=== PATIENT | male | born 1940 | race Caucasian/White ===

== ENCOUNTER 2025-08-11 11:41 | Emergency (ER) | payer MEDICARE, OTHER, SELFPAY ==
[2025-08-11] VITALS (8 sets, daily range): BP systolic 102–183; BP diastolic 64–131; BMI 28.1
[2025-08-11 12:37] LABS: Hematocrit 44.0 % (39.0-52.0); Hemoglobin 15.1 g/dL (13.0-18.0); Mean Corp Hgb Conc. 34.3 g/dL (33.0-37.0); Mean Corpuscular Volume 88.7 fL (80.0-94.0); Nucleated Red Blood Cells % 0 % (-); Platelet Count 154 10^3/uL (130-400); Red Cell Dist. Width 14.0 % (11.5-14.5)
[2025-08-11 12:45] LABS: INR 0.95; PT 13.2 Sec (11.4-14.6)
[2025-08-11 12:46] LABS: APTT 33.2 Sec (23.4-35.0)
--- NOTE | 2025-08-11 12:48 | ED.GENMED ---
History of Present Illness
General
Chief Complaint: Heart Rate Problem
Source: patient and spouse
Exam Limitations: none
Time Seen by Provider: 08/11/25 12:37
Nursing documentation reviewed up to this point in time: agreed with
History of Present Illness
History of Present Illness:
85 male sent over from surgery center he was to get cataract surgery found to be in rapid A-fib unaware that he was in A-fib, as a new issue for him he has hypertension on lisinopril essential tremor on propranolol hypercholesterolemia also
chronically on Mobic no fevers no chest pains
Past History
Past History
ED Past Medical History: HTN; Negative Arrthythmia, IDDM or NIDDM
ED Past Surgical History: Negative Cardiac
Social History
Tobacco: Non-smoker
Alcohol: Occasional
Drug: None
Personal:
Living: with family
Employment: Retired
Family History
Family History: Other (Noncontributory)
Review of Systems
Review of Systems
All Other Systems: Not applicable
Constitutional: Denies fever or fatigue
EENT: Reports no symptoms
Respiratory: Reports no symptoms
Cardiac: Reports no symptoms
ABD/GI: Reports no symptoms
Phy Exam
Physical Exam
Physical Exam:
Physical Exam
General: no apparent distress, not acutely ill
Neck: No jaundice
Heart: Tachycardic
Lungs: no acute respiratory distress. clear bilaterally
Abdomen: Nontender
Neuro: alert and oriented. no focal neurological deficits
Skin: no rash
Psychiatric: well kept. interactive and cooperative
Extremities: no edema. no calf tenderness.
Scores
[id number] Score for Afib Stroke Risk
Age in Years (65=0, 65-74=1, >/=75=2): > or = 75
Sex (Female=+1): Male
Congestive Heart Failure History (Yes=+1): No
Hypertension History (Yes=+1): Yes
Stroke/TIA/Thromboembolism History (Yes=+2): No
Vascular Disease History (Yes=+1): No
Diabetes Mellitus (Yes=+1): No
Score: 3
Anticoagulation Recommendations: Recommend anticoagulation (as validated in nonvalvular fib)
Course
Orders/Labs/Results
Orders:
Orders
08/11/25 11:42
Electrocardiogram (*1) Urgent
Reason for Study: Atrial Fibrillation
EKG- Treatment ONCE
08/11/25 12:28
Complete Blood Count/With Diff Urgent
Comprehensive Metabolic Panel Urgent
PTT Urgent
Prothrombin Time Urgent
Troponin I Urgent
08/11/25 12:46
Diltiazem HCl [Cardizem] 10 mg IV NOW STA
08/11/25 13:00
Diltiazem 125 mg/125 ml Nss [Cardizem] 125 mg in 125 ml IV PER PROTOCOL
Initial dose in mg/hr, then titrate:: 5
Titrate to keep:: Heart rate 80-100 bpm
Titrate by mg/hr:: 5 mg/hr
Frequency of titrations (minutes):: 15
Maximum dose in mg/hr:: 15
08/11/25 13:55
CARDIOLOGY CONSULT Urgent
Consulting Provider: Israel Smith
Was physician already notified: Yes
08/11/25 14:13
0.9% Sodium Chloride 1000 ml [Nss] 1,000 ml IV BOLUS
Abnormal Lab Results
08/11/25
12:28
Absolute Neuts (auto) 7.9 H 10^3/uL
(1.4-6.5)
Absolute Lymphs (auto) 0.8 L 10^3/uL
(1.2-3.4)
Neutrophils % 84.3 H %
(42.2-75.2)
Lymphocytes % 8.8 L %
(20.5-51.1)
BUN 21 H mg/dl
(9-20)
Glucose 199 H mg/dl
(70-99)
Total Bilirubin 1.9 H mg/dl
(0.2-1.3)
08/11/25 12:28
08/11/25 12:28
Vital Signs
Initial and Last Documented VS:
Initial Vital Signs
Temp Pulse Resp BP Pulse Ox
97.8 F 131 22 183/131 98
08/11/25 11:48 08/11/25 11:48 08/11/25 11:48 08/11/25 11:48 08/11/25 11:48
Last Documented Vital Signs
Temp Pulse Resp BP Pulse Ox
97.8 F 67 10 102/75 96
08/11/25 11:48 08/11/25 14:00 08/11/25 14:00 08/11/25 14:00 08/11/25 14:00
MDM/Problems Addressed
Differential Diagnosis Includes:
Atrial fibs A. tach electrolyte abnormality thyroid
MDM/Problems Addressed:
Tach
Chronic conditions affecting care: HTN
Acute Exacerbation and/or Progression of Chronic Illness: HTN
*Pulse Oximetry
SaO2: 98
Oxygen Mode of Delivery: Room air
Patient hypoxic: no
*EKG
Interpreted by ED Provider?: Yes
Interpretation: abnormal
Comparison EKG: no comparison EKG present
Heart Rate: 118
Rate: tachycardiac
Rhythm: a-fib
Ischemia: non-specific ST changes
*Snag Grinder Interpretation
Rate: tachycardiac
Interpretation: abnormal
Heart Rate: 118
Rhythm: a-fib
*Critical Care Note
Total Time (30-74mins, 75-104mins- exclusive of procedures): 32
Update Note
Update Note:
2 PM update labs noted still in A-fib controlled rate consult placed to cardiology spouse has seen Cooper Morgan previously
2:40 PM update patient looks well rate controlled AF blood pressure improved patient family updated
ED Attending Note
-
Portions of this chart may have been created with voice recognition software.� Occasional wrong word or��sound alike� substitutions may have occurred due to the inherent limitations of voice recognition software.
Discharge Plan
Departure
Prescriptions:
No Action
propranolol 60 MG capsule,extended release 24 hr
60 mg PO DAILY
aspirin 81 MG tablet,delayed release (DR/EC)
81 mg PO QPM
simvastatin 20 MG tablet
20 mg PO QPM
lisinopril 10 MG tablet
10 mg PO QPM
cephalexin 500 mg capsule
500 mg PO Q8H 3 Days Qty: 9 0RF
Referrals:
Thomas Parrish MD [Family Provider, Family Practice]
Interventions
Interventions:
*Risk Screen - Suicide Last Done: 08/11/25 11:48
*Neglect/Abuse Screening Last Done: 08/11/25 11:48
ED- Cardiac Assessment Last Done: 08/11/25 12:00
ED- Pulmonary Assessment Last Done: 08/11/25 12:00
Discharge Date and Time
Print Language: SRI LANKAN
[2025-08-11 12:50] LABS: ALT (SGPT) 18 U/L (0-50); AST (SGOT) 20 U/L (17-59); Albumin 4.4 g/dl (3.5-5.0); Alkaline Phosphatase 71 U/L (38-126); Blood Urea Nitrogen 21 mg/dl (9-20); Calcium 9.4 mg/dl (8.4-10.2); Carbon Dioxide 24 mmol/L (22-30); Chloride 106 mmol/L (98-107); Estimated Creatinine Clearance 70 ml/min; Glucose 199 mg/dl (70-99); Potassium 4.4 mmol/L (3.5-5.1); Sodium 136 mmol/L (135-145); Total Protein 6.5 g/dl (6.3-8.2); eGFR > 60.00
[2025-08-11 13:01] LABS: Troponin I < 0.012 ng/ml
[2025-08-11] MEDS: CARDIZEM 125 IV (13:20)
[2025-08-11] MEDS: CARDIZEM 10 MG IV (13:20)
[2025-08-11] MEDS: NSS 1000 IV (14:19)
--- NOTE | 2025-08-11 15:19 | CON.CAR ---
Addendum entered and electronically signed by Israel Smith MD 08/11/25 17:55:
I saw and examined the patient.
The Branch Service Leader's note was reviewed and I agree with the note.
Comment:
GEN: No distress, awake, Ox3
HEENT: supple, anicteric, mmm
LUNGS: CTA, no wheezes/rales
CV: Irreg, S1/S2, 1/6 syst LSB,
ABD: soft, BS+, NT/ND
EXT: No edema
NEURO: Gross non-focal
SKIN: No rash
Plan:
85-year-old male who presents for elective cataract surgery with past medical history of hypertension, hyperlipidemia and essential tremor was found to be in new onset atrial fibrillation with modestly elevated rates. He denies any chest pain
shortness of breath or palpitations. He has no history of bleeding issues but has had some balance issues in the past. He was initiated on IV Cardizem and his heart rate is now controlled in the 80s.
[id number] score is 3.
We will start Eliquis 5 mg p.o. twice daily. We will initiate diltiazem 120 mg daily. We discussed treatment options including inpatient JAIRO cardioversion versus outpatient management he prefers an outpatient management.
He is currently rate controlled and feels well. We will set him up with outpatient echocardiogram. We discussed wearing a monitor but he will follow his heart rate with [employer] or an Apple watch for now.
Will reevaluate him in several weeks and at that point if he remains in atrial fibrillation we will proceed with elective cardioversion.
We did discuss avoiding alcohol and significant amounts of caffeine.
Original Note:
Consultation
Consultation Request
Date/Time Consultation Performed: 08/11/25
Requesting Provider: Dr. Ortega
Performing Provider: Jen Palumbo PA-C for Dr. Smith
Reason for Consultation: afib
Medical History
-
Chief Complaint: new afib
History of Present Illness:
Patient is an 85-year-old male with past medical history of essential tremor, hypertension, hyperlipidemia who presents to [facility] as was noted at time of his elective cataract surgery to be in A-fib with RVR. He is asymptomatic, denying palpitations,
lightheadedness, shortness of breath, chest pains. He does report today he noticed his heart rate was slightly higher than normal. He denies history of known A-fib. Denies history of bleeding issues. He was given IV Cardizem push followed by
initiation of Cardizem drip. Heart rates now much improved, however remains in atrial fibrillation. Cardiology consulted for evaluation. Denies history of known thyroid disease, significant alcohol use, caffeine use, or KENDALL. Does report
supplement use. He states he did not take his propranolol dose this AM due to his cataract procedure.
PMH:
essential tremor
HTN
HLD
Past Medical History
Past Medical History: Other (in HPI)
Social History
Tobacco: Non-Smoker
Alcohol: Daily (1 drink daily)
Personal:
Living: With Family
Employment: Retired
Family History
Family History: CAD
Allergies / Home Medications
Allergy/AdvReac Type Severity Reaction Status Date / Time
No Known Allergies Allergy Unverified 02/27/16 12:11
�Medication �Instructions �Recorded �Confirmed �Type
aspirin 81 mg tablet,delayed 81 mg PO QPM 02/27/16 02/27/16 History
release
lisinopril 10 mg tablet 10 mg PO QPM 02/27/16 02/27/16 History
propranolol 60 mg capsule,24 60 mg PO DAILY 02/27/16 02/27/16 History
hr,extended release
simvastatin 20 mg tablet 20 mg PO QPM 02/27/16 02/27/16 History
cephalexin 500 mg capsule 500 mg PO Q8H 3 days #9 caps 07/30/23 Rx
Review of Systems
-
History Source: Patient and Family
All other systems: Negative unless noted
Physical Exam
Vital Signs
Temp Pulse Resp BP Pulse Ox
97.8 F 71 18 132/96 97
08/11/25 11:48 08/11/25 15:00 08/11/25 15:00 08/11/25 15:00 08/11/25 15:00
Lab Results
08/11/25 12:28
08/11/25 12:28
Troponin I < 0.012 ng/ml 08/11/25 12:28
Physical Exam
General: No Apparent Distress and Comfortable
HEENT: Normocephalic, Anicteric and Moist Mucous Membranes
Respiratory: Clear and Non Labored Respirations
Cardiac: S1/S2 and Irregular Rhythm
GI: Soft, Non Tender, Non Distended and Normal Bowel Sounds
Musculoskeletal: No Clubbing, No Cyanosis and No Edema
Skin: Warm and Dry
Neuro: AO x 3
Impression / Plan
-
Primary Talent Management Specialist: none, follows with Dr. DENITA Morgan
Assessment:
Atrial fibrillation with RVR, new diagnosis of unclear duration
Essential tremor
HTN
HLD
Plan:
- Patient presents to ER due to new A-fib noted by EKG completed at time of arrival for elective cataract surgery. Patient asymptomatic
- Currently heart rates controlled on IV Cardizem gtt.
- He is already on propranolol 60 mg daily as an outpatient for essential tremor, and states he prefers to stay on this. We discussed addition of p.o. Cardizem cd 120 mg
- [id number] score of 3 for age, HTN. We discussed anticoagulation to reduce stroke risk and he is agreeable. he denies significant bleeding issues. Would start Eliquis 5 mg twice daily
- Check TSH
- Will need echo as an outpatient
- Troponin negative x 1
- We discussed with addition of blood thinner, should stop Mobic and be careful of supplements such as fish oil, vitamin E, and B vitamins
- Would be judicious with alcohol use and caffeine use. He denies sleep apnea
- Offered admission for JAIRO/cardioversion, however patient would prefer to manage as outpatient as he is asymptomatic, which appears reasonable
- Will arrange outpatient cardiac follow-up and if remains in A-fib at that time, would arrange for outpatient cardioversion
- Discussed with ER physician
- Discussed with patient and family at bedside
Data Reviewed
-
EKG: Tracing Personally Visualized and interpreted
Labs: Labs Reviewed by me
[2025-08-11] MEDS: ELIQUIS 5 MG PO (15:57)
[2025-08-11] MEDS: CARDIZEM CD 120 MG PO (15:57)
--- NOTE | 2025-08-11 16:08 | CM ---
Patient seen at bedside in ED. Patient and daughter also present. Patient stated that he lives with behind [place] in a condo with no steps. Patient consult for cost of eliquis. Patient deductible remaining 590 and cost for 90 days is 700
approx per [place] pharmacist with 45$ copay and approx cost would be 308. remaining. Patient family expressed understanding of costs and stated they would be able to work with it. Family to review open enrollment plans for moving forward and coupon
provided to patient. Family to provide assistance with transportation home. Patient did not anticipate any needs for VN at this time. CM will continue to follow for discharge planning needs.
Plan; home with coupon for medication.
== END 2025-08-11 16:15 | disposition home or self-care (01) ==
LOC: EMR 11:41
PROVIDERS: Emergency Medicine; CONSULT PHYSICIAN Internal Medicine Cardiovascular Disease; EMERGENCY PHYSICIAN Emergency Medicine; FAMILY PHYSICIAN Family Medicine
DX: I48.91 Unspecified atrial fibrillation (principal); I10 Essential (primary) hypertension; E78.00 Pure hypercholesterolemia, unspecified; G25.0 Essential tremor; Z82.49 Family history of ischemic heart disease and other diseases of the circulatory system
CPT/HCPCS: 99284; 96374; 96376; 96361 ×2; 80053; 84443; 84484; 85025; 85610; 85730; 93005

== ENCOUNTER → 2025-08-19 10:05 | Outpatient (REF) | payer MEDICARE, OTHER, SELFPAY | LOC: HWRCS 10:05 | PROVIDERS: ATTENDING PHYSICIAN Internal Medicine Cardiovascular Disease; FAMILY PHYSICIAN Family Medicine | DX: I48.91 Unspecified atrial fibrillation (principal) | CPT/HCPCS: 93306 ==